=== PATIENT | male | born 1945 | race Caucasian/White ===

== ENCOUNTER 2024-01-04 13:06 | Inpatient (IN) ==
--- NOTE | 2024-01-04 14:06 | Emergency Department Note ---
Impression & Plan Fall, Ambulatory dysfunction, Elevated troponin, Cellulitis of right lower extremity ED Provider Note NAME: HINA FRANCIS AGE: 78 SEX: M : 1945 ARRIVES VIA: Walk-In INFORMANT: Patient, son ED PROVIDER(S): King Garcia MD CHIEF COMPLAINT: Fall, weakness, inability to care MEDICAL DECISION MAKING: Patient presents due to concern for 3 falls in the last 2 days. Patient also with associated weakness and possible inability to care. Son is requesting possible placement. IV was established and blood work was obtained. Patient has a normal white count hemoglobin 11. Patient's platelet count is unremarkable. Kidney function unremarkable. AST elevated at 53. Initial troponin of 29.2. Repeat of 30.8. Urinalysis does show blood but no signs of obvious infection. Patient did have CT of the head and cervical spine completed which were negative. Left hip and pelvis x-rays completed along with left shoulder x-ray. These are also negative. I did speak with the on-call hospitalist service Dr. Dahl and Traci Quintana PA-C and the patient was admitted to the medicine service. Discussion w/ other healthcare providers: Traci Quintana PA-C and Dr. Dahl Prior /Outside records reviewed: None Differential diagnosis: Fracture, dislocation, contusion, strain, sprain, ICH, hemothorax, intra- abdominal injury, anemia among other causes were considered. Diagnostics, as interpreted by me: ECG: Sinus, rate of 82, normal intervals, normal axis no ST elevations, ST depressions noted in the lateral leads. Cardiac monitoring: An order was placed for continuous cardiac monitoring. The monitor shows a rate of 77 with sinus rhythm. Patient was placed on pulse oximetry Medical decision rules: [place] head CT rule Imaging studies: I informally interpreted the patient's Left hip and pelvis x-rays do not show obvious fracture or dislocation with formal report to follow. HPI: Patient presents with son due to concern for 3 falls that occurred within the last 2 days. The patient reportedly never goes to his actual bedroom but tends to fall asleep in the couch or in a lift chair and reportedly had fallen off the couch yesterday as well as out of his chair yesterday. This morning he was apparently found on the floor by his brother. Patient's son brought him here as he lives closer to [place] and he was concerned about these falls. He does live in [place] of [place]. Patient does take Eliquis. He currently denies head or neck pain. Patient does not believe that he syncopized but just woke up on the floor. Patient does complain of some left heel pain does state that he has a chronic wound there. Patient was noted to have a DVT in his right lower extremity recently and that is why he does take the Eliquis. 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 PAST MEDICAL HISTORY: See Below PAST SURGICAL HISTORY: See Below SOCIAL HISTORY: See Below HOME MEDICATIONS: See Below ALLERGIES: See Below VITALS: See Below PHYSICAL EXAMINATION: GENERAL: NAD, non-toxic. EYE EXAM: Normal conjunctiva. PERRL, no anisocoria and EOM's grossly intact w/o pain. OROPHARYNX: Moist mucus membranes, grossly normal dentition. NECK: Trachea midline, no stridor. Supple, no nuchal rigidity, no adenopathy, non-tender. No signs of meningismus. FROM of the neck with good chin to chest and neck extension. LUNGS: Clear to auscultation. Normal chest wall mechanics. HEART: NSR, no MRG. ABDOMEN: Abdomen soft, non-tender, no masses, no rebound or guarding. BACK: No CVA TTP. SKIN: No rashes and no bruising. UPPER EXTREMITIES: Mild left shoulder pain. LOWER EXTREMITIES: Mild left hip pain and left heel pain. No obvious deformity. Left foot appears slightly smaller compared to the right. Right greater than left lower extremity swelling, venous stasis changes. Bilateral erythema noted. NEURO EXAM: A&O x3, cranial nerves II-XII grossly intact, normal speech, moves all 4 extremities. Past Med/Surg History Problem List (Updated 01/04/24 @ 19:34 by King Garcia MD) Cellulitis of right lower extremity (Acute) Elevated troponin (Acute) Ambulatory dysfunction (Acute) Fall (Acute) Medical History Chronic anemia hx of transfusion, hgb chronically at 11 Lung nodule CKD (chronic kidney disease) stage 3, GFR 30-59 ml/min Hx of cardiomyopathy CAD [facility]cor[facility]ary [facility] ([facility]ension) COPD (chronic obstructive pulmonary disease) Club foot left Right leg DVT dx in june, on eliquis for 3 months, resolved, and December 15 and nonocclusive DVT re diagnosed. He has been started on xarelto due to lack of insurance Peripheral arterial disease Surgical History Hx of cardiac cath 90% posterior, anterior 70% - nonamenable to stenting Hx of [id number] bypass 2021 angioplasty of previous aortic femoral bypass 2016 bypass of aorta 2018 femoral bypass Family History Son CHF (congestive heart failure) Other Family history non-contributory Social History Smoking Status: Former smoker Tobacco Type: Cigarettes Smoking End Date: 5 years ago; Hx Alcohol Use: Yes (hx of alcohol use, quit 30 years ago) Hx Substance Use: No Preferred Language: Egyptian Current Living Situation: Alone Feels Safe at Home: Yes Allergies Allergies Allergy/AdvReac Type Severity Reaction Status Date / Time No Known Allergies Allergy Unverified 01/04/24 16:27 Home Meds Home Medications Medication Instructions Recorded Confirmed aspirin 81 mg tablet,delayed 81 mg PO DAILY 01/04/24 01/04/24 release atorvastatin 40 mg tablet 40 mg PO DAILY 01/04/24 01/04/24 carvedilol 3.125 mg tablet 3.125 mg PO BID 01/04/24 01/04/24 ferrous sulfate 325 mg (65 mg 325 mg PO DAILY 01/04/24 01/04/24 iron) tablet (FeroSul) furosemide 20 mg tablet 20 mg PO DAILY 01/04/24 01/04/24 rivaroxaban 15 mg tablet (Xarelto) 15 mg PO BID 01/04/24 01/04/24 Results & Data (ED) Vital Signs Vital Signs - 24 hr 01/04/24 13:28 01/04/24 13:41 01/04/24 14:00 Temperature 36.6 C Temperature Source Temporal Artery Scan Pulse Rate 86 84 Pulse Rate from SpO2 Sensor 85 Respiratory Rate 20 31 H Respiratory Effort / Characteristics Non-Labored Spontaneous Respiratory Depth Normal Respiratory Pattern Regular Blood Pressure 148/61 H Blood Pressure Mean 90 Blood Pressure Position Sitting Pulse Oximetry 94 97 Oxygen Delivery Method Room Air Room Air Sepsis Recent Fever Within 48 Hours No Sepsis New/Unexplained Change in Mental Status No Sepsis Action Taken by Nursing No Action Required 01/04/24 14:16 01/04/24 14:16 01/04/24 14:21 Temperature Temperature Source Pulse Rate 85 Pulse Rate from SpO2 Sensor 84 Respiratory Rate 26 H Respiratory Effort / Characteristics Respiratory Depth Respiratory Pattern Blood Pressure 173/92 H Blood Pressure Mean 113 Blood Pressure Position Pulse Oximetry 97 99 Oxygen Delivery Method Room Air Sepsis Recent Fever Within 48 Hours Sepsis New/Unexplained Change in Mental Status Sepsis Action Taken by Nursing 01/04/24 14:31 01/04/24 14:31 01/04/24 14:33 Temperature Temperature Source Pulse Rate 85 Pulse Rate from SpO2 Sensor 85 Respiratory Rate 30 H Respiratory Effort / Characteristics Respiratory Depth Respiratory Pattern Blood Pressure 139/104 H 139/104 H Blood Pressure Mean 110 110 Blood Pressure Position Pulse Oximetry 97 Oxygen Delivery Method Sepsis Recent Fever Within 48 Hours Sepsis New/Unexplained Change in Mental Status Sepsis Action Taken by Nursing 01/04/24 14:45 01/04/24 14:46 01/04/24 14:46 Temperature Temperature Source Pulse Rate 85 Pulse Rate from SpO2 Sensor Respiratory Rate 29 H Respiratory Effort / Characteristics Respiratory Depth Respiratory Pattern Blood Pressure 173/77 H 173/77 H Blood Pressure Mean 111 111 Blood Pressure Position Pulse Oximetry Oxygen Delivery Method Sepsis Recent Fever Within 48 Hours Sepsis New/Unexplained Change in Mental Status Sepsis Action Taken by Nursing 01/04/24 15:00 01/04/24 15:01 01/04/24 15:01 Temperature Temperature Source Pulse Rate 88 Pulse Rate from SpO2 Sensor 90 Respiratory Rate 25 H Respiratory Effort / Characteristics Respiratory Depth Respiratory Pattern Blood Pressure 127/109 H Blood Pressure Mean 114 Blood Pressure Position Pulse Oximetry 96 Oxygen Delivery Method Room Air Sepsis Recent Fever Within 48 Hours Sepsis New/Unexplained Change in Mental Status Sepsis Action Taken by Nursing 01/04/24 15:15 01/04/24 15:15 01/04/24 15:15 Temperature Temperature Source Pulse Rate 85 Pulse Rate from SpO2 Sensor 85 Respiratory Rate Respiratory Effort / Characteristics Respiratory Depth Respiratory Pattern Blood Pressure 157/91 H 157/91 H Blood Pressure Mean 128 128 Blood Pressure Position Pulse Oximetry 98 Oxygen Delivery Method Sepsis Recent Fever Within 48 Hours Sepsis New/Unexplained Change in Mental Status Sepsis Action Taken by Nursing 01/04/24 15:24 01/04/24 15:33 01/04/24 15:33 Temperature Temperature Source Pulse Rate Pulse Rate from SpO2 Sensor 86 Respiratory Rate Respiratory Effort / Characteristics Respiratory Depth Respiratory Pattern Blood Pressure 132/78 132/78 Blood Pressure Mean 103 103 Blood Pressure Position Pulse Oximetry 97 Oxygen Delivery Method Sepsis Recent Fever Within 48 Hours Sepsis New/Unexplained Change in Mental Status Sepsis Action Taken by Nursing 01/04/24 15:36 01/04/24 15:42 01/04/24 15:45 Temperature Temperature Source Pulse Rate 84 85 Pulse Rate from SpO2 Sensor 84 85 Respiratory Rate 21 26 H Respiratory Effort / Characteristics Respiratory Depth Respiratory Pattern Blood Pressure 157/96 H Blood Pressure Mean 118 Blood Pressure Position Pulse Oximetry 96 97 Oxygen Delivery Method Sepsis Recent Fever Within 48 Hours Sepsis New/Unexplained Change in Mental Status Sepsis Action Taken by Nursing 01/04/24 15:45 01/04/24 15:51 01/04/24 16:00 Temperature Temperature Source Pulse Rate 90 Pulse Rate from SpO2 Sensor 90 Respiratory Rate 24 Respiratory Effort / Characteristics Respiratory Depth Respiratory Pattern Blood Pressure 157/96 H 139/82 Blood Pressure Mean 118 94 Blood Pressure Position Pulse Oximetry 97 Oxygen Delivery Method Sepsis Recent Fever Within 48 Hours Sepsis New/Unexplained Change in Mental Status Sepsis Action Taken by Nursing 01/04/24 16:21 01/04/24 16:23 01/04/24 16:23 Temperature Temperature Source Pulse Rate 83 Pulse Rate from SpO2 Sensor Respiratory Rate 19 Respiratory Effort / Characteristics Respiratory Depth Respiratory Pattern Blood Pressure 155/67 H 155/67 H Blood Pressure Mean 80 80 Blood Pressure Position Pulse Oximetry Oxygen Delivery Method Sepsis Recent Fever Within 48 Hours Sepsis New/Unexplained Change in Mental Status Sepsis Action Taken by Nursing 01/04/24 16:27 01/04/24 16:30 Temperature Temperature Source Pulse Rate 83 Pulse Rate from SpO2 Sensor Respiratory Rate 20 Respiratory Effort / Characteristics Respiratory Depth Respiratory Pattern Blood Pressure 140/70 Blood Pressure Mean 86 Blood Pressure Position Pulse Oximetry 97 Oxygen Delivery Method Sepsis Recent Fever Within 48 Hours Sepsis New/Unexplained Change in Mental Status Sepsis Action Taken by Alf Medications Current Medication List: was personally reviewed by me Laboratory Data Attestation: I reviewed the patient's lab results. 01/04/24 14:03 01/04/24 14:03 Lab Results 01/04/24 01/04/24 01/04/24 Range/Units 14:03 15:34 16:18 WBC 7.72 (4.8-10.8) K/ul RBC 4.42 L (4.70-6.10) M/uL Hgb 11.6 L (14.0-18.0) g/dl Hct 37.0 L (42.0-52.0) % MCV 83.7 (80.0-100.0) fL MCH 26.2 (25.0-34.0) pg MCHC 31.4 L (32.0-36.0) g/dL RDW Std Deviation 58.2 H (36.4-46.3) fL RDW Coeff of Karly 19.5 H (11.5-14.5) % Plt Count 250 (130-400) K/uL MPV 9.6 (9.4-12.4) fL Immature Gran % (Auto) 1.3 % Neut % (Auto) 50.4 % Lymph % (Auto) 17.9 % [place] % (Auto) 30.2 % Eos % (Auto) 0.1 % Baso % (Auto) 0.1 % Neut # (Auto) 3.89 (1.40-6.50) K/uL Lymph # (Auto) 1.38 (1.20-3.40) K/uL [place] # (Auto) 2.33 H (0.11-0.59) K/uL Eos # (Auto) 0.01 (0.00-0.50) K/uL Baso # (Auto) 0.01 (0.00-0.20) K/uL Immature Gran # (Auto) 0.10 (0.01-0.20) K/uL Sodium 142 (136-145) mmol/L Potassium 3.5 (3.5-5.1) mmol/L Chloride 102 (98-107) mmol/L Carbon Dioxide 32 (21-32) mmol/L Anion Gap 8 (3-11) BUN 19 (6-23) mg/dl Creatinine 1.37 (0.6-1.4) mg/dl Est Cr Clr Drug Dosing Not Reportable Est GFR ( Amer) 56.1 ml/min Est GFR (Non-Af Amer) 48.4 ml/min BUN/Creatinine Ratio 13.9 (10-20) Glucose 104 H (70-99(Fasting)) mg/dl Calcium 9.4 (8.6-10.3) mg/dl Total Bilirubin 1.1 H (0.2-1.0) mg/dl AST 53 H (13-39) U/L ALT 18 (7-52) U/L Alkaline Phosphatase 79 (34-104) U/L Troponin I High Sens 29.2 H 30.8 H (0-20) pg/ml Total Protein 7.3 (6.0-8.3) gm/dl Albumin 4.0 (3.4-5.0) gm/dl Globulin 3.3 (2.5-4.0) gm/dl Albumin/Globulin Ratio 1.2 (0.9-2) Urine Color Yellow Urine Appearance Clear (Clear) Urine pH 5.5 (4.5-7.5) Ur Specific [place] 1.017 (1.000-1.030) Urine Protein 1+ H (Negative) Urine Glucose (UA) Negative (Negative) Urine Ketones Negative (Negative) Urine Blood 1+ H (Negative) Urine Nitrite Negative (Negative) Urine Bilirubin Negative (Negative) Urine Urobilinogen Negative (Negative) Ur Leukocyte Esterase Negative (Negative) Urine WBC (Auto) 0-5 (0-5) /hpf Urine RBC (Auto) 6-10 H (0-2) /hpf U Hyaline Cast (Auto) 3-5 H (0-2) /lpf U Epithel Cells (Auto) 0-2 (0-2) /hpf Urine Bacteria (Auto) None Seen (None Seen) Administered Medications Discontinued Medications Acetaminophen (Acetaminophen 500 Mg Tab) 500 mg PO NOW STA Stop: 01/04/24 14:17 Last Admin: 01/04/24 14:42 Dose: 500 mg Documented By: UYEN Sodium Chloride (Nss) 500 mls @ 999 mls/hr IV .Q31M SIENNA Stop: 01/04/24 15:00 Last Infusion: 01/04/24 15:50 Dose: Infused Documented By: Admin: 01/04/24 14:42 Dose: 999 mls/hr Documented By: UYEN Imaging Data Radiologist's Impression: Cervical Spine CT 01/04/24 14:17 CT cervical spine wo con CLINICAL HISTORY: 78 years-old Male with Trauma. COMPARISON: Head CT of same day. TECHNIQUE: Multiple axial CT images of the cervical spine were obtained without contrast. A dose lowering technique was utilized adhering to the principles of ALARA. FINDINGS: Multilevel degenerative changes of the cervical spine, most severe at C1-C2 and moderate left C4-C5 and C5-C6. No acute cervical spine fracture or subluxation identified. The cervical soft tissues appear unremarkable. Pulmonary emphysema. Calcified plaque of the carotid bulbs. Minimal polypoid mucosal thickening of the maxillary sinuses. Dental caries and periapical cysts noted within the maxilla and mandible. The visualized lung apices appear clear. IMPRESSION: No acute cervical spine fracture or subluxation identified. ACT 112: Negative or not required by law. The above report was generated using voice recognition software. It may contain grammatical, syntax or spelling errors. Electronically signed by: Deshaun Torres M.D. 01/04/2024 4:[address] 01/04/24 14:[address] DOSE: 1489.67 mGy.cm HISTORY: Trauma TECHNIQUE: Multiaxial CT images of the head were performed without the use of intravenous contrast. Automated exposure control was utilized for this study. A dose lowering technique was utilized adhering to the principles of ALARA. Comparison: None. Findings: The paranasal sinuses and mastoid air cells are clear. The calvarium and skull base are intact. There is no mass, hematoma, midline shift, acute infarct. White matter hypodensity is nonspecific but suggestive of microvascular ischemic change. The ventricles and sulci demonstrate mild age-related involutional changes. Impression: No acute intracranial abnormality. ACT 112: Negative or not required by law. Electronically signed by: Yon Mcclellan M.D. 01/04/2024 4:27 PM Hip/Pelvis X-Ray 01/04/24 16:23 XR hip LT 2V w pelvis CLINICAL HISTORY: Hip trauma, fracture suspected, no prior imaging COMPARISON STUDY: None. FINDINGS: No acute fracture or dislocation within the pelvis or hips. The sacrum is intact. 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 Vascular calcifications are noted. Soft tissues are unremarkable. IMPRESSION: No acute fracture or dislocation within the pelvis or hips. ACT 112: Negative or not required by law. Electronically signed by: Yon Mcclellan M.D. 01/04/2024 4:56 PM Shoulder X-Ray 01/04/24 16:23 XR shoulder RT min 2V routine HISTORY: 78 years-old Male Shoulder trauma, no prior imaging the right shoulder pain without trauma COMPARISON: None TECHNIQUE: 3 views of the right shoulder FINDINGS: Mild glenohumeral and AC joint osteoarthritis. Demineralized appearance of the bones. No acute fracture, or dislocation identified. Imaged lung martinez appear clear with pulmonary emphysema. Atherosclerosis of the aorta. IMPRESSION: No acute fracture or dislocation identified. ACT 112: Negative or not required by law. The above report was generated using voice recognition software. It may contain grammatical, syntax or spelling errors. Electronically signed by: Deshaun Torres M.D. 01/04/2024 4:53 PM Discharge Plan Visit Data Chief Complaint: Trauma Stated Complaint: FALL X3, BLOOD CLOT IN R LEG, WOUND ON L FOOT ED Provider: King Garcia Discharge Problem: Fall, Ambulatory dysfunction, Elevated troponin, Cellulitis of right lower extremity Patient Disposition: Admitted As Inpatient Discharge Instructions Interventions: ED Discharge Assessment Last Done: 01/04/24 18:42 Discharge Problem: Fall Qualifiers: Encounter type: initial encounter Qualified Code(s): W19.XXXA - Unspecified fall, initial encounter
[2024-01-04 14:28] LABS: Hemoglobin 11.6 g/dl (14.0-18.0); Mean Corpuscular Hemoglobin 26.2 pg (25.0-34.0); Mean Corpuscular Hgb Conc 31.4 g/dL (32.0-36.0); Mean Corpuscular Volume 83.7 fL (80.0-100.0); Mean Platelet Volume 9.6 fL (9.4-12.4); Platelet Count 250 K/uL (130-400); RDW Coefficient of Variation 19.5 % (11.5-14.5); RDW Standard Deviation 58.2 fL (36.4-46.3); Red Blood Count 4.42 M/uL (4.70-6.10); White Blood Count 7.72 K/ul (4.8-10.8)
[2024-01-04] MEDS: ACETAMINOPHEN 500 MG TAB PO STA (14:42)
[2024-01-04] MEDS: SODIUM CHLORIDE 0.9% 500 ML IV SCH (14:42)
[2024-01-04 14:50] LABS: Alanine Aminotransferase 18 U/L (7-52); Albumin Globulin Ratio 1.2 (0.9-2); Alkaline Phosphatase 79 U/L (34-104); Anion Gap 8 (3-11); Aspartate Aminotransferase 53 U/L (13-39); BUN Creatinine Ratio 13.9 (10-20); Bilirubin,Total 1.1 mg/dl (0.2-1.0); Blood Urea Nitrogen 19 mg/dl (6-23); Calcium 9.4 mg/dl (8.6-10.3); Carbon Dioxide 32 mmol/L (21-32); Chloride 102 mmol/L (98-107); Est GFR (African American) 56.1 ml/min; Est GFR (Non-African American) 48.4 ml/min; Globulin 3.3 gm/dl (2.5-4.0); Glucose 104 mg/dl (70-99(Fasting)); Potassium 3.5 mmol/L (3.5-5.1); Sodium 142 mmol/L (136-145); Total Protein 7.3 gm/dl (6.0-8.3)
[2024-01-04 14:55] LABS: Troponin I High Sensitivity 29.2 pg/ml (0-20)
[2024-01-04 15:00] LABS: Basophils # (auto) 0.01 K/uL (0.00-0.20); Basophils % (auto) 0.1 %; Eosinophils # (auto) 0.01 K/uL (0.00-0.50); Eosinophils % (auto) 0.1 %; Immature Granulocytes % (auto) 1.3 %; Lymphocytes # (auto) 1.38 K/uL (1.20-3.40); Lymphocytes % (auto) 17.9 %; Monocytes # (auto) 2.33 K/uL (0.11-0.59); Monocytes % (auto) 30.2 %; Neutrophils # (auto) 3.89 K/uL (1.40-6.50); Neutrophils % (auto) 50.4 %
[2024-01-04 16:15] LABS: Appearance Urine Clear (Clear); Bacteria Urine Automated None Seen (None Seen); Bilirubin Urine Negative (Negative); Blood Urine 1+ (Negative); Color Urine Yellow; Epithelial Cell Urine Auto 0-2 /hpf (0-2); Glucose Urine UA Negative (Negative); Ketones Urine Negative (Negative); Leukocyte Esterase Urine Negative (Negative); Nitrite Urine Negative (Negative); Protein Urine 1+ (Negative); Specific Gravity Urine 1.017 (1.000-1.030); Urobilinogen Urine Negative (Negative); WBC Urine Automated 0-5 /hpf (0-5); pH Urine 5.5 (4.5-7.5)
--- NOTE | 2024-01-04 16:29 | CT Scan Report ---
HEAD CT NONCONTRAST CT DOSE: 1489.67 mGy.cm HISTORY: Trauma TECHNIQUE: Multiaxial CT images of the head were performed without the use of intravenous contrast. A utomated exposure control was utilized for this study. A dose lowering technique was utilized adheri ng to the principles of ALARA. Comparison: None. Findings: The paranasal sinuses and mastoid air cells are clear. The calvarium and skull base are int act. There is no mass, hematoma, midline shift, acute infarct. White matter hypodensity is nonspecifi c but suggestive of microvascular ischemic change. The ventricles and sulci demonstrate mild age-rela abe involutional changes. Impression: No acute intracranial abnormality. ACT 112: Negative or not required by law. Electronically signed by: Yon Mcclellan M.D. 01/04/2024 4:27 PM
--- NOTE | 2024-01-04 16:40 | CT Scan Report ---
CT cervical spine wo con CLINICAL HISTORY: 78 years-old Male with Trauma. COMPARISON: Head CT of same day. TECHNIQUE: Multiple axial CT images of the cervical spine were obtained without contrast. A dose low ering technique was utilized adhering to the principles of ALARA. FINDINGS: Multilevel degenerative changes of the cervical spine, most severe at C1-C2 and moderate le ft C4-C5 and C5-C6. No acute cervical spine fracture or subluxation identified. The cervical soft tissues appear unremarkable. Pulmonary emphysema. Calcified plaque of the carotid b ulbs. Minimal polypoid mucosal thickening of the maxillary sinuses. Dental caries and periapical cyst s noted within the maxilla and mandible. The visualized lung apices appear clear. IMPRESSION: No acute cervical spine fracture or subluxation identified. ACT 112: Negative or not required by law. The above report was generated using voice recognition software. It may contain grammatical, syntax o r spelling errors. Electronically signed by: Deshaun Torres M.D. 01/04/2024 4:37 PM
--- NOTE | 2024-01-04 16:55 | XRay Report ---
XR shoulder RT min 2V routine HISTORY: 78 years-old Male Shoulder trauma, no prior imaging the right shoulder pain without trauma COMPARISON: None TECHNIQUE: 3 views of the right shoulder FINDINGS: Mild glenohumeral and AC joint osteoarthritis. Demineralized appearance of the bones. No acute fractu re, or dislocation identified. Imaged lung martinez appear clear with pulmonary emphysema. Atherosclero sis of the aorta. IMPRESSION: No acute fracture or dislocation identified. ACT 112: Negative or not required by law. The above report was generated using voice recognition software. It may contain grammatical, syntax o r spelling errors. Electronically signed by: Deshaun Torres M.D. 01/04/2024 4:53 PM
--- NOTE | 2024-01-04 16:57 | XRay Report ---
XR hip LT 2V w pelvis CLINICAL HISTORY: Hip trauma, fracture suspected, no prior imaging COMPARISON STUDY: None. FINDINGS: No acute fracture or dislocation within the pelvis or hips. The sacrum is intact. 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 Vascular calcifications are noted. Soft tissues a re unremarkable. IMPRESSION: No acute fracture or dislocation within the pelvis or hips. ACT 112: Negative or not required by law. Electronically signed by: Yon Mcclellan M.D. 01/04/2024 4:56 PM
--- NOTE | 2024-01-04 17:25 | History & Physical Report ---
Date of Service January 04, 2024 Assessment & Plan (1) Fall: (2) Ambulatory dysfunction: (3) Elevated troponin: (4) Cellulitis of right lower extremity: (5) Right leg DVT: (6) Peripheral arterial disease: (7) CAD (coronary artery disease): (8) Hx of cardiomyopathy: (9) CKD (chronic kidney disease) stage 3, GFR 30-59 ml/min: (10) COPD (chronic obstructive pulmonary disease): Plan This is an 78-year-old male who has a significant past medical history of CAD, PAD with history of aortic bypass, hx of femoral bypass and hx of angioplasty to femoral bypass, CKD-3, chronic anemia, COPD, chronic L club foot pain this is a patient with bilateral nephrostomy tube which are, DVT who presents to ED 2/2 falls. Acute RLE cellulitis in setting of chronic venous stasis changes and known PAD admit to med tele IV ancef for now he does not meet SIRS/Sepsis criteria pt with L heel breakdown, no tiara infection there, heel precautions and wound nurse order Obtain RLE Venous doppler - we know he has a known DVT but will obtain imaging to get a better understanding of clot given pt not local Fall ( 3 falls in 2 days) Ambulatory dysfunction PT/OT Son agreeable to short term rehab until family determines joint terminal attack controller plan PAD with hx of aortic/femoral bypass with angioplasty of femoral bypass on statin, asa and now xarelto follows with vascular in [place] Hx of CAD Hx of cardiomyopathy (per son) Elevated troponin pt with some subtle lateral/inferior ecg changes, none to compare follows [facility] cycle trops, obtain echo, ecg in a.m; pt is w/o CP and 2 hr trop is flat doubt ACS Subacute RLE DVT dx Dec 16, on xarelto 15mg bid then 20mg daily previously on eliquis, now on xarelto due to lack of insurance initially dx june 2023 with dvt, eliquis for 3 months, off eliquis for 3 months and re diagnosed with RLE DVT 12/16 Chronic Anemia hgb around 11 at baseline per son obtain anemia panel in a.m. son reports previous w/u unrevealing but he is on iron supplement CKD- 3baseline cr 1.4, chronic, stable, avoid nephrotoxic agents COPD/Former tobacco abuse:no acute exac DVT ppx: On xarelto for active DVT DNR/DNI PCP: CATHERINE Nowak Dispo: admit to med tele, family and pt agreeable to short term rehab until family (2 brothers) determine usp plan for patient Pt was seen and examined in collaboration with Dr. Dahl, please see addendum A total of 76 minutes was spent coordinating, documenting, and providing care for this patient excluding time spent in the performance of separately billed services. This included personally viewing all current laboratories and imaging studies, medication reconciliation, outpatient chart review, and discussion with specialists. History of Present Illness Chief Complaint: Fall x 3 in 2 days, weakness Primary Care Provider: Akilah Short This is an 78-year-old male who has a significant past medical history of CAD, PAD with history of aortic bypass, hx of femoral bypass and hx of angioplasty to femoral bypass, CKD-3, chronic anemia, COPD, chronic L club foot pain this is a patient with bilateral nephrostomy tube which are, DVT who presents to ED 2/2 falls. Son and daughter in law at bedside. They help provide history. Patient resides in a [place], [place]. He was brought here today by his son who lives in the area for further evaluation and concern due to his recent falls. Pt has another son that lives by him and checks on him regularly. He also has someone come to house to help with his meds that helps with compliance. Also of note pt dx with RLE DVT in June and tx with Eliquis x 3 months. He had been off for 3 months and on re eval he was found to have another RLE DVT and placed on xarelto 12/16. Son feels that pt RLE is more red than usual. Pt denies any f/c/s, chest pain, sob at rest, n/v/d, abd pain. He is complaining of L heel pain. Son reports drainage of L heel and that he recently completed a 10 day course of keflex approx 1 week ago due to concern for cellulitis on his left foot. He has had 3 falls the last 2 days. He mostly sleeps in a recliner. His one fall he rolled off the couch while sleeping and the other he fell when he was trying to stand up. He generally feels weak. He walks with a walker. He is unsure if he struck his head, but he presumes that he did. He does not have any traumatic injury other than bruising. He denies BENAVIDEZ of vision changes. He is complaining of L foot pain. He denies any recent illness. He denies f/c/s, chest pain, sob,n/v/d, abd pain. In ED pt remained hemodynamically stable. Head CT, C spine CT, shoulder XR and hip/pelvis xr negative for acute trauma. Hx of smoking. He smoked for 50 years. He quit 5 year ago. Allergies Allergy/AdvReac Type Severity Reaction Status Date / Time No Known Allergies Allergy Unverified 01/04/24 16:27 Home Medications Medication Instructions Recorded Confirmed Type aspirin 81 mg tablet,delayed 81 mg PO DAILY 01/04/24 01/04/24 History release atorvastatin 40 mg tablet 40 mg PO DAILY 01/04/24 01/04/24 History carvedilol 3.125 mg tablet 3.125 mg PO BID 01/04/24 01/04/24 History ferrous sulfate 325 mg (65 mg 325 mg PO DAILY 01/04/24 01/04/24 History iron) tablet (FeroSul) furosemide 20 mg tablet 20 mg PO DAILY 01/04/24 01/04/24 History rivaroxaban 15 mg tablet (Xarelto) 15 mg PO BID 01/04/24 01/04/24 History Past Med/Surg History Problem List (Updated 01/04/24 @ 19:34 by King Garcia MD) Cellulitis of right lower extremity (Acute) Elevated troponin (Acute) Ambulatory dysfunction (Acute) Fall (Acute) Medical History Chronic anemia hx of transfusion, hgb chronically at 11 Lung nodule CKD (chronic kidney disease) stage 3, GFR 30-59 ml/min Hx of cardiomyopathy CAD (coronary artery disease) Dr. Leyva [facility] [place] Gil[facility]to HTN (hypertension) COPD (chronic obstructive pulmonary disease) Club foot left Right leg DVT dx in june, on eliquis for 3 months, resolved, and December 15 and nonocclusive DVT re diagnosed. He has been started on xarelto due to lack of insurance Peripheral arterial disease Surgical History Hx of cardiac cath 90% posterior, anterior 70% - nonamenable to stenting Hx of [id number] bypass 2021 angioplasty of previous aortic femoral bypass 2016 bypass of aorta 2018 femoral bypass Family History Son CHF (congestive heart failure) Other Family history non-contributory Social History Smoking Status: Former smoker Tobacco Type: Cigarettes Smoking End Date: 5 years ago; Hx Alcohol Use: Yes (hx of alcohol use, quit 30 years ago) Hx Substance Use: No Preferred Language: Albanian Current Living Situation: Alone Feels Safe at Home: Yes Review of Systems Review of Systems: All systems reviewed & are unremarkable except as noted in HPI & below Physical Exam Physical Exam: please refer to Dr. Dahl addendum for physical exam findings. Results & Data Results & Data Vital Signs (Past 12 Hours) Vital Signs Temp Pulse Resp BP Pulse Ox O2 Del Method 01/04/24 16:30 140/70 01/04/24 16:27 83 20 97 01/04/24 16:23 155/67 H 01/04/24 16:23 155/67 H 01/04/24 16:21 83 19 01/04/24 16:00 139/82 01/04/24 15:51 90 24 97 01/04/24 15:45 157/96 H 01/04/24 15:45 157/96 H 01/04/24 15:42 85 26 H 97 01/04/24 15:36 84 21 96 01/04/24 15:33 132/78 01/04/24 15:33 132/78 01/04/24 15:24 97 01/04/24 15:15 85 98 01/04/24 15:15 157/91 H 01/04/24 15:15 157/91 H 01/04/24 15:01 127/109 H 01/04/24 15:01 Room Air 01/04/24 15:00 88 25 H 96 01/04/24 14:46 173/77 H 01/04/24 14:46 173/77 H 01/04/24 14:45 85 29 H 01/04/24 14:33 85 30 H 97 01/04/24 14:31 139/104 H 01/04/24 14:31 139/104 H 01/04/24 14:21 85 26 H 99 01/04/24 14:16 97 Room Air 01/04/24 14:16 173/92 H 01/04/24 14:00 84 31 H 97 01/04/24 13:41 Room Air 01/04/24 13:28 36.6 C 86 20 148/61 H 94 Room Air Laboratory Results I have independently reviewed and interpreted patient's admitting labs including CBC, CMP, pt/inr, trop, UA Diagnostic Findings Cervical Spine CT 01/04/24 14:17 CT cervical spine wo con CLINICAL HISTORY: 78 years-old Male with Trauma. COMPARISON: Head CT of same day. TECHNIQUE: Multiple axial CT images of the cervical spine were obtained without contrast. A dose lowering technique was utilized adhering to the principles of ALARA. FINDINGS: Multilevel degenerative changes of the cervical spine, most severe at C1-C2 and moderate left C4-C5 and C5-C6. No acute cervical spine fracture or subluxation identified. The cervical soft tissues appear unremarkable. Pulmonary emphysema. Calcified plaque of the carotid bulbs. Minimal polypoid mucosal thickening of the maxillary sinuses. Dental caries and periapical cysts noted within the maxilla and mandible. The visualized lung apices appear clear. IMPRESSION: No acute cervical spine fracture or subluxation identified. ACT 112: Negative or not required by law. The above report was generated using voice recognition software. It may contain grammatical, syntax or spelling errors. Electronically signed by: Deshaun Torres M.D. 01/04/2024 4:[address] 01/04/24 14:[address] DOSE: 1489.67 mGy.cm HISTORY: Trauma TECHNIQUE: Multiaxial CT images of the head were performed without the use of intravenous contrast. Automated exposure control was utilized for this study. A dose lowering technique was utilized adhering to the principles of ALARA. Comparison: None. Findings: The paranasal sinuses and mastoid air cells are clear. The calvarium and skull base are intact. There is no mass, hematoma, midline shift, acute infarct. White matter hypodensity is nonspecific but suggestive of microvascular ischemic change. The ventricles and sulci demonstrate mild age-related involutional changes. Impression: No acute intracranial abnormality. ACT 112: Negative or not required by law. Electronically signed by: Yon Mcclellan M.D. 01/04/2024 4:27 PM Hip/Pelvis X-Ray 01/04/24 16:23 XR hip LT 2V w pelvis CLINICAL HISTORY: Hip trauma, fracture suspected, no prior imaging COMPARISON STUDY: None. FINDINGS: No acute fracture or dislocation within the pelvis or hips. The sacrum is intact. 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 Vascular calcifications are noted. Soft tissues are unremarkable. IMPRESSION: No acute fracture or dislocation within the pelvis or hips. ACT 112: Negative or not required by law. Electronically signed by: Yon Mcclellan M.D. 01/04/2024 4:56 PM Shoulder X-Ray 01/04/24 16:23 XR shoulder RT min 2V routine HISTORY: 78 years-old Male Shoulder trauma, no prior imaging the right shoulder pain without trauma COMPARISON: None TECHNIQUE: 3 views of the right shoulder FINDINGS: Mild glenohumeral and AC joint osteoarthritis. Demineralized appearance of the bones. No acute fracture, or dislocation identified. Imaged lung martinez appear clear with pulmonary emphysema. Atherosclerosis of the aorta. IMPRESSION: No acute fracture or dislocation identified. ACT 112: Negative or not required by law. The above report was generated using voice recognition software. It may contain grammatical, syntax or spelling errors. Electronically signed by: Deshaun Torres M.D. 01/04/2024 4:53 PM Medications Administered Medication List Discontinued Medications Acetaminophen (Acetaminophen 500 Mg Tab) 500 mg PO NOW STA Stop: 01/04/24 14:17 Last Admin: 01/04/24 14:42 Dose: 500 mg Documented By: UYEN Sodium Chloride (Nss) 500 mls @ 999 mls/hr IV .Q31M SIENNA Stop: 01/04/24 15:00 Last Infusion: 01/04/24 15:50 Dose: Infused Documented By: Admin: 01/04/24 14:42 Dose: 999 mls/hr Documented By: UYEN ECG Additional Comments: I have independently reviewed and interpreted patient's admitting EKG which revealed: 82 SR PAC, inferior/lateral St wave depression noted, no comparsion COVID-19 Results Results COVID-19 Adm Lab Results: RBC 4.42 M/uL (4.70-6.10) L 01/04/24 WBC 7.72 K/ul (4.8-10.8) 01/04/24 Hgb 11.6 g/dl (14.0-18.0) L 01/04/24 Hct 37.0 % (42.0-52.0) L 01/04/24 Plt Count 250 K/uL (130-400) 01/04/24 Neutrophils (%) (Auto) 50.4 % 01/04/24 Lymphocytes (%) (Auto) 17.9 % 01/04/24 Monocytes # (Auto) 2.33 K/uL (0.11-0.59) H 01/04/24 Eosinophils # (Auto) 0.01 K/uL (0.00-0.50) 01/04/24 Immature Granulocyte % (Auto) 1.3 % 01/04/24 Neutrophils # (Auto) 3.89 K/uL (1.40-6.50) 01/04/24 Lymphocytes # (Auto) 1.38 K/uL (1.20-3.40) 01/04/24 Monocytes # (Auto) 2.33 K/uL (0.11-0.59) H 01/04/24 Eosinophils # (Auto) 0.01 K/uL (0.00-0.50) 01/04/24 Basophils # (Auto) 0.01 K/uL (0.00-0.20) 01/04/24 Immature Granulocyte # (Auto) 0.10 K/uL (0.01-0.20) 4 Na 142 mmol/L (136-145) 01/04/24 K 3.5 mmol/L (3.5-5.1) 01/04/24 Cl 102 mmol/L (98-107) 01/04/24 CO2 32 mmol/L (21-32) 01/04/24 Anion Gap 8 (3-11) 01/04/24 BUN 19 mg/dl (6-23) 01/04/24 Creatinine 1.37 mg/dl (0.6-1.4) 01/04/24 BUN/Creatinine Ratio 13.9 (10-20) 01/04/24 Glucose Level 104 mg/dl (70-99(Fasting)) H 01/04/24 Ca 9.4 mg/dl (8.6-10.3) 01/04/24 Total Bilirubin 1.1 mg/dl (0.2-1.0) H 01/04/24 AST/SGOT 53 U/L (13-39) H 01/04/24 ALT/SGPT 18 U/L (7-52) 01/04/24 Alkaline Phosphatase 79 U/L (34-104) 01/04/24 Total Protein 7.3 gm/dl (6.0-8.3) 01/04/24 Albumin 4.0 gm/dl (3.4-5.0) 01/04/24 Globulin 3.3 gm/dl (2.5-4.0) 01/04/24 Albumin/Globulin Ratio 1.2 (0.9-2) 01/04/24 INR Pending 01/04/24 Code Status & VTE Plan Code Status DNR/DNI VTE Prophylaxis Plan VTE Prophylaxis will be ordered: No Reason for no VTE drug order: Treatment not indicated Supervising Physician Co-Signing Physician Notes 78 yo M w/ PMH of CHF, MS, RLE DVT, Lt heel cellulitis (recently Rxed w/ Keflex which they completed about 10 days ago), aortic bypass, femoral bypass x rt and angioplasty of femoral bypass presented to the ED due to multiple falls since last 2 days. He states he rolled off of recliner and cough while sleeping and one time he was trying to get off of chair by himself, he became weak and landed on his buttocks. Per his son, he needs assistance w/ getting off of chair. Son reports pt's Rt leg has been getting red lately. Pt was on eliquis previously for DVT x RLE and was off of any blood thinner for 3 months and was again put back on xarelto on Dec 16. He states his insurance doesn't support eliquis and xarelto and pt can't be on coumadin due to pt's transportation issues/need for frequently pt inr check. Labs reviewed, fairly wnl. trop x 2 around 30. Fall: recurrent falls, likely 2/2 acute infection iso ambulatory dysfunction/left club foot. CT Head/C-spine CT/Left Hip XR/Rt Shoulder XR w/ no acute findings. PT/OT HO RLE DVT: RLE swollen, red. Will get RLE doppler venous. c/w xarelto. WOCN consult. RLE cellulitis: RLE erythema increasing per son. Warm to touch on exam. Will initiate cefazolin. Elevated trop, around 30, trend. get echo. Pt w/ no chest pain, EKG w/ no acute ST or T changes. On Exam : GENERAL: Alert and oriented x3. NAD, on RA. Appears ill/frail/weak/old. HEENT: No pallor, no icterus. Pupils equal, round and reactive to light. Oral mucosa moist. NECK: No JVD, no neck masses. HEART: S1 and S2 heard. Regular rate and rhythm. No murmur, no gallop. RESPIRATORY SYSTEM: Normal AP diameter. No accessory muscle use. No wheezing, no crackles. ABDOMEN: Soft, bowel sounds present, nontender, no distention. CENTRAL NERVOUS SYSTEM: No facial droop. Speech is clear. Obeys simple commands. Moves extremities. EXTREMITIES: RLE edema > LLE. Rt leg and foot warmth/edema noted. Left club foot noted. Rt shoulder bruise, Left elbow bruise and left hand bruise noted. No bruise/swelling in head/neck area. I have seen and examined the patient and have discussed the case with the provider above. I agree with the assessment and plan as stated.
--- NOTE | 2024-01-04 18:57 | Electrocardiogram Report ---
Test Reason : Blood Pressure : */* mmHG Vent. Rate : 82 BPM Atrial Rate : 82 BPM P-R Int : 140 ms QRS Dur : 72 ms QT Int : 364 ms P-R-T Axes : 87 74 248 degrees QTcB Int : 425 ms Sinus rhythm with Premature ventricular complexes Septal infarct , age undetermined Abnormal ECG No previous ECGs available Confirmed by Rayo Blake ([id number]) on 01/04/2024 6:57:07 PM Referred By: REFERRED SELF Confirmed By: Rayo Blake
[2024-01-04] MEDS ORDERED: FAMOTIDINE 20 MG TAB PO PRN (19:32)
[2024-01-04] MEDS ORDERED: POLYETHYLENE (MIRALAX) 17 GM PACK PO PRN (19:32)
[2024-01-04] MEDS ORDERED: ALBUT/IPRATROP 3MG/0.5MG NEB 3 ML VIAL NEB PRN (19:32)
[2024-01-04] MEDS ORDERED: DOCUSATE SODIUM 100 MG CAP PO PRN (19:32)
[2024-01-04] MEDS ORDERED: ONDANSETRON INJ 2 MG/ML 2 ML VIAL IV PRN (19:32)
[2024-01-04] MEDS: ceFAZolin 2000MG 2,000 MG/15 ML SYR IV SCH (22:12)
[2024-01-04] MEDS: carvediloL 3.125 MG TAB PO SCH (22:12)
[2024-01-04] MEDS: RIVAROXABAN 15 MG TAB PO SCH (22:12)
[2024-01-04] MEDS: ACETAMINOPHEN 325 MG TAB PO PRN (22:14)
[2024-01-04] MEDS: MELATONIN 3 MG TAB PO PRN (22:14)
[2024-01-04 23:31] LABS: INR 1.1 (0.9-1.1)
--- NOTE | 2024-01-05 03:44 | Ultrasound Report ---
Exam(s): US VENOUS RIGHT LOWER EXTREMITY EXAM: US Duplex Right Lower Extremity Veins CLINICAL HISTORY: Concern for deep vein thrombosis. TECHNIQUE: Real-time duplex ultrasound scan of the right lower extremity veins integrating B-mode two-dimensional vascular structure, Doppler spectral analysis, color flow Doppler imaging and compression. COMPARISON: No relevant prior studies available. FINDINGS: Deep veins: Unremarkable. No Deep vein thrombosis in the visualized common femoral, femoral, proximal deep femoral or popliteal veins. The veins demonstrate normal color flow, are normally compressible, with normal phasic flow and/or augmentation response. Superficial veins: Poorly visualized great saphenous vein. Soft tissues: Nonspecific subcutaneous edema. No popliteal cyst. IMPRESSION: 1. Nonspecific subcutaneous edema. 2. No deep vein thrombosis of the right lower extremity. 3. The greater saphenous vein is not well visualized. Electronically signed by: Sara Yousif MD 01/05/24 03:44 AM
[2024-01-05 07:07] LABS: Hematocrit (blood only) 30.6 % (42.0-52.0); Hemoglobin 9.6 g/dl (14.0-18.0); Mean Corpuscular Hemoglobin 26.4 pg (25.0-34.0); Mean Corpuscular Hgb Conc 31.4 g/dL (32.0-36.0); Mean Corpuscular Volume 84.3 fL (80.0-100.0); Mean Platelet Volume 9.9 fL (9.4-12.4); Platelet Count 217 K/uL (130-400); RDW Coefficient of Variation 19.3 % (11.5-14.5); RDW Standard Deviation 58.8 fL (36.4-46.3); Red Blood Count 3.63 M/uL (4.70-6.10); White Blood Count 5.27 K/ul (4.8-10.8)
[2024-01-05 07:46] LABS: Albumin Globulin Ratio 1.3 (0.9-2); Albumin Level 3.4 gm/dl (3.4-5.0); BUN Creatinine Ratio 14.4 (10-20); Bilirubin,Total 0.6 mg/dl (0.2-1.0); Calcium 8.3 mg/dl (8.6-10.3); Creatinine Clr Calc Pharmacy 33.1 ml/min; Est GFR (African American) 51.9 ml/min; Est GFR (Non-African American) 44.8 ml/min; Globulin 2.7 gm/dl (2.5-4.0); Magnesium 1.8 mg/dl (1.7-2.4); Potassium 3.3 mmol/L (3.5-5.1); Thyroid Stimulating Hormone 7.208 uIu/ml (0.300-4.500); Total Protein 6.1 gm/dl (6.0-8.3); Troponin I High Sensitivity 29.1 pg/ml (0-20)
[2024-01-05 08:01] LABS: Basophils # (auto) 0.01 K/uL (0.00-0.20); Basophils % (auto) 0.2 %; Eosinophils # (auto) 0.02 K/uL (0.00-0.50); Eosinophils % (auto) 0.4 %; Immature Granulocytes # (auto) 0.07 K/uL (0.01-0.20); Immature Granulocytes % (auto) 1.3 %; Lymphocytes # (auto) 1.28 K/uL (1.20-3.40); Lymphocytes % (auto) 24.3 %; Monocytes # (auto) 1.72 K/uL (0.11-0.59); Monocytes % (auto) 32.6 %; Neutrophils # (auto) 2.17 K/uL (1.40-6.50); Neutrophils % (auto) 41.2 %
[2024-01-05] MEDS: FUROSEMIDE 20 MG TAB PO SCH (08:28)
[2024-01-05] MEDS: ADVANCED PROBIOTIC 625 MG CAPSULE PO SCH (08:29)
[2024-01-05] MEDS: FERROUS SULFATE PO SCH (08:29)
[2024-01-05] MEDS: ATORVASTATIN 40 MG TAB PO SCH (08:29)
[2024-01-05] MEDS: ASPIRIN 81 MG ECTAB PO SCH (08:29)
[2024-01-05] MEDS: POTASSIUM CHLORIDE / WTR 10 MEQ/100 ML PLCT IV SCH (10:35)
[2024-01-05] MEDS: CHOLECALCIFEROL 125 MCG (5,000 UNITS) TAB PO SCH (10:40)
[2024-01-05 10:56] LABS: Ferritin 192.4 ng/ml (8-388); T4 Free Thyroxine 1.05 ng/dl (0.61-1.60)
--- NOTE | 2024-01-05 12:59 | Hospitalist Progress Note ---
<Statement entered by Landon Bowling, - 01/05/24 14:00> I have seen and examined the patient and have discussed the case with the provider above. I have reviewed the advanced practitioner's documentation, and I agree with, and take responsibility for that plan of care. 14 minutes spent on care coordination and evaluation of patient. Patient seen up and ambulating in the halls. Denies any pain in the leg. No shortness of breath. Reviewed ultrasound of lower extremity, no definitive DVT some chronic edema. Anticipate patient will be able to be converted to oral Keflex soon Further plan of care as outlined below Date of Service January 05, 2024 Assessment & Plan (1) Ambulatory dysfunction: (2) Cellulitis of right lower extremity: Plan Zak Mays is an 78y/o M with PMHx significant for CAD, PAD [history of yzlzd-afycc-doxbavj bypass & history of angioplasty of previous xvwgq-mkqsc-imbpmeh bypass in 2021 - both procedures completed in [place]], CKD stage III, COPD, chronic anemia [appears baseline Hgb ~11], lung nodule, history of cardiomyopathy, HTN, chronic left clubfoot pain and RLE DVT who presented to the ED on 01/04/24 for evaluation secondary to recent falls. Patient also noted to have RLE cellulitis and elevated troponin level at time of admission. Ambulatory Dysfunction, Recent Falls: PT evaluation pending. CM met with patient and his son, Patrick, this afternoon. Initial OT evaluation recommending acute inpatient rehabilitation placement at time of discharge. Acute RLE Cellulitis: In setting of chronic venous stasis changes, known PAD. Vitals stable. Continue IV Ancef for now. CrCl dropped to ~ 33ml/min today. Pharmacy recommended decreasing Ancef to 2g IV Q12H instead of Q8H - ordered. Elevated Troponin CAD, History of Cardiomyopathy: EKG done in ED with subtle lateral/inferior EKG changes. Patient without chest pain. Initial troponin 29.2, repeat troponins appear to have flattened out. Low concern for ACS. Patient follows with [facility] in [place] [Dr. Efrem Gastelum] per his son. Routine echo revealed small sized anterolateral wall motion abnormality with hypokinesis of the segments, LVEF=45-50% and grade I diastolic dysfunction. Per echo report/summary --> The septal wall motion abnormality correlates with the findings of age-indeterminate septal infarction noted on EKG done in the ED. Subacute RLE DVT: Patient was diagnosed with RLE in 06/2023 and treated with Eliquis x 3 months. Non-occlusive RLE DVT rediagnosed on 12/17/23. Was placed on Xarelto at that time 2/2 lack of insurance coverage. RLE venous doppler US yesterday showed nonspecific subcutaneous edema, however no DVT noted. Continue Xarelto. Xarelto dosing per chart review --> 15mg BID for 21 days through 01/07/24, then 20mg daily starting on 01/08/24. 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 Recently completed 10-day course of Keflex from his PCP 2/2 concern of infection. Wound care involved. Peripheral Arterial Disease (PAD) H/O Elrov-Lvwhr-Vraddlu Bypass & Angioplasty: Continue statin, ASA and Xarelto. Son reports he follows with vascular surgery in [place]. Chronic Anemia: Hgb ~11 at baseline, Hgb 9.6 today. Anemia panel notes iron deficiency. 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 CKD Stage III: Appears baseline Cr ~1.4, Cr stable at 1.46 today. Avoid nephrotoxic meds when able. Continue to monitor renal fx. COPD: No acute exacerbation sx's, no home medications for COPD management. 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 Code Status: DNR/DNI - As outlined by previous provider. PCP: Akilah Short MD [[facility] in [place]] Disposition: Previously under observation status. Transitioned patient to full admission status given anticipation of >48hr length of stay. CM involved with patient's case. Patient seen in collaboration with Dr. Bowling. Please see addendum. I spent a total of 65 minutes coordinating, documenting, and providing care for this patient excluding time spent in the performance of separately billed services. This included personally reviewing all current laboratories and imaging studies, medical reconciliation, outpatient chart review and discussion with specialists. This chart was completed in part utilizing Speech Voice Recognition Software. Grammatical errors, random word insertions, pronoun errors, and incomplete sentences are an occasional consequence of this system due to software limitations, ambient noise, and hardware issues. Any formal questions or concerns about the content, text, or information contained within the body of this dictation should be directly addressed to the provider for clarification. Admission and Anticipated Discharge Date Admission Date: January 04, 2024 Subjective Patient seen and examined at bedside in room N283-1. His son, Patrick, was present in the room for further discussion. Patient had fallen off of the couch and out of his chair the other day. Patrick reports that he has had 3 or so falls over the past couple of days. Patient lives in [place], [place]. Patrick however lives in the area and wanted to bring his father here for evaluation. Patient uses a walker/rollator at baseline. He lives at home alone. Has private caregivers that stop by daily to assist with ADLs. He was previously fully independent a few months ago and was active with [facility] - he is not currently associated with them. Patrick notes that the family is open to considering placement options for him if he cannot return home safely with previous private caregiver support. Review of Systems Review of Systems: At least ten systems reviewed and negative, except as noted in the HPI. Physical Exam Physical Exam: General: Very frail, vitals as above, NAD, sitting up in chair at bedside eating lunch, A+O mostly to self, answers some questions appropriately. HEENT: Normocephalic, atraumatic. PERRL, conjunctivae normal, anicteric sclerae. External ear and nose normal, oropharynx normal. Respiratory: Normal respiratory effort, lungs clear to auscultation, no wheeze, rales, rhonchi. No accessory muscle use. Cardiovascular: Regular rate, rhythm, no murmur, normal peripheral pulses, no BLE edema. Vessels: No JVD. Abdomen/GI: Normal bowel sounds, soft, nontender, no hepatosplenomegaly. Extremities/Musculoskeletal: RLE redness/edema/warmth, left club foot, left heel ulcer covered, moves all extremities. Neurologic: EOMI, no focal deficits, obeys simple commands, CN's II-XI not formally tested but appear grossly intact bilaterally. Skin: No rashes, right shoulder bruise, left shoulder bruise and bruise on left hand noted. Results & Data Results & Data Vital Signs (Past 12 Hours) Vital Signs Temp Pulse Pulse Resp BP Pulse Ox O2 Del Method 01/05/24 11:02 36.3 C L 79 18 120/67 97 Room Air 01/05/24 09:13 Room Air 01/05/24 07:38 36.3 C L 82 16 155/67 H 95 Room Air 01/05/24 07:00 74 01/05/24 02:42 36.4 C L 77 18 134/66 94 Room Air Laboratory Results Short CBC 01/04/24 01/05/24 Range/Units 14:03 05:50 WBC 7.72 5.27 (4.8-10.8) K/ul Hgb 11.6 L 9.6 L (14.0-18.0) g/dl Hct 37.0 L 30.6 L (42.0-52.0) % Plt Count 250 217 (130-400) K/uL BMP 01/04/24 01/05/24 14:03 05:50 Sodium 142 143 Potassium 3.5 3.3 L Chloride 102 105 Carbon Dioxide 32 33 H BUN 19 21 Creatinine 1.37 1.46 H Glucose 104 H 75 Calcium 9.4 8.3 L Liver Function 01/04/24 01/05/24 Range/Units 14:03 05:50 Total Bilirubin 1.1 H 0.6 D (0.2-1.0) mg/dl AST 53 H 38 (13-39) U/L ALT 18 14 (7-52) U/L Alkaline Phosphatase 79 63 (34-104) U/L Albumin 4.0 3.4 (3.4-5.0) gm/dl Urine 01/04/24 Range/Units 15:34 Urine Color Yellow Urine Appearance Clear (Clear) Urine pH 5.5 (4.5-7.5) Ur Specific [place] 1.017 (1.000-1.030) Urine Protein 1+ H (Negative) Urine Glucose (UA) Negative (Negative)
[2024-01-05] MEDS ORDERED: ALBUT/IPRATROP 3MG/0.5MG NEB 3 ML VIAL NEB PRN ×3 (15:56→16:25)
[2024-01-05] MEDS ORDERED: methylPREDNISolone 1000 MG/16 ML IV STA (15:57)
--- NOTE | 2024-01-05 16:07 | Communication Note ---
<Statement entered by Landon Bowling, DO - 01/05/24 17:29> I have seen and examined the patient and have discussed the case with the provider above. I have reviewed the advanced practitioner's documentation, and I agree with, and take responsibility for that plan of care. 22 minutes spent on evaluation patient coordination care. Urgently called to bedside with TRUDY, patient with increased work of breathing and requiring oxygen. Patient reports he has a long smoking history. Reports he is never needed inhalers or nebulizers before. Personally reviewed chest x-ray images, hyperinflated lungs, no pleural effusions, no consolidative infiltrate, no congestion. Patient with decreased breath sounds, prolonged expiratory phase poor airflow and tight faint wheezes throughout. Exacerbation of COPD Nebulizer treatments with DuoNeb, Solu-Medrol IV then continue oral prednisone starting tomorrow Oxygen support Patient reevaluated after nebulizer treatment. Less tachypneic, improved airflow, wheezing improved. Continue with treatment for exacerbation of COPD. Date of Service: January 05, 2024 Was alerted via [employer] by Alisa Maya RN at 15:40 that the patient was short of breath with increased work of breathing. Notable audible expiratory wheezing, but was sating well at 98-99% SpO2 on 2L. Will continue O2 for now. Stat CXR with no overtly acute findings on bedside interpretation. 125mg IV Solu-Medrol ordered in addition to scheduled Duonebs. Will proceed with 5-day course of prednisone 40mg daily starting tomorrow morning. Patient with history of COPD per his son, Patrick. Not currently on any pulmonary medications. Would benefit from inpatient pulmonology consultation if not clinically improving with scheduled nebs and st eroids. Updated his son, Patrick, over the phone. Made him aware of the situation above. Mentions that his father used to smoke 3 packs of cigarettes/day up until he quit in April 2019. Patient has a nebulizer available at home, however "has not used it in many years" according to him. Patrick remembers that his father used to be on a maintenance inhaler, but cannot recall which one.
[2024-01-05] MEDS: ceFAZolin 2000MG 2,000 MG/15 ML SYR IV SCH (16:21)
--- NOTE | 2024-01-05 16:28 | XRay Report ---
XR chest 1V portable HISTORY: Shortness of breath. COMPARISON: None. FINDINGS: No pneumothorax. No pleural effusions. Mild interstitial thickening which is likely chronic . No focal lung consolidations to suggest pneumonia. No evidence for pulmonary edema. The heart is no rmal in size. No acute fractures identified. IMPRESSION: No acute process. ACT 112: Negative or not required by law. Electronically signed by: Yon Mcclellan M.D. 01/05/2024 4:26 PM
[2024-01-05] MEDS ORDERED: ACETAMINOPHEN 325 MG TAB PO SCH (16:30)
[2024-01-05] MEDS: methylPREDNISolone 125 MG in SYRINGE 0 ML IV STA (16:38)
[2024-01-05] MEDS: ACETAMINOPHEN 325 MG TAB PO SCH (16:39)
[2024-01-05] MEDS: ALBUT/IPRATROP 3MG/0.5MG NEB 3 ML VIAL NEB SCH (17:19)
[2024-01-05] MEDS ORDERED: LORazepam 0.5 MG TAB PO PRN (17:25)
[2024-01-06 07:20] LABS: Hematocrit (blood only) 34.6 % (42.0-52.0); Hemoglobin 10.7 g/dl (14.0-18.0); Mean Corpuscular Hemoglobin 26.2 pg (25.0-34.0); Mean Corpuscular Hgb Conc 30.9 g/dL (32.0-36.0); Mean Corpuscular Volume 84.6 fL (80.0-100.0); Mean Platelet Volume 10.2 fL (9.4-12.4); Platelet Count 256 K/uL (130-400); RDW Coefficient of Variation 19.1 % (11.5-14.5); RDW Standard Deviation 57.3 fL (36.4-46.3); Red Blood Count 4.09 M/uL (4.70-6.10); White Blood Count 4.14 K/ul (4.8-10.8)
[2024-01-06 07:43] LABS: BUN Creatinine Ratio 15.9 (10-20); Calcium 8.4 mg/dl (8.6-10.3); Creatinine Clr Calc Pharmacy 33.4 ml/min; Est GFR (African American) 55.6 ml/min; Est GFR (Non-African American) 47.9 ml/min; Magnesium 1.7 mg/dl (1.7-2.4); Phosphorus 3.8 mg/dl (2.5-4.9); Potassium 4.1 mmol/L (3.5-5.1)
[2024-01-06] MEDS: predniSONE 20 MG TAB PO SCH (08:29)
[2024-01-06] MEDS: METOPROLOL SUCC 25MG EXT REL TAB PO SCH (10:01)
--- NOTE | 2024-01-06 13:14 | Hospitalist Progress Note ---
<Statement entered by Landon Bowling, DO - 01/06/24 14:59> I have seen and examined the patient and have discussed the case with the provider above. I have reviewed the advanced practitioner's documentation, and I agree with, and take responsibility for that plan of care. 15 minutes spent on coordination care and evaluated patient. Patient seen and evaluated. Airflow significantly improved, wheezing resolved. Son at bedside. Transition to inhalers Transition to oral antibiotics Therapies Anticipate discharge to rehab tomorrow. Plan of care as outlined below Date of Service January 06, 2024 Assessment & Plan (1) Ambulatory dysfunction: (2) Cellulitis of right lower extremity: (3) COPD exacerbation: Plan Zak Mays is an 78y/o M with PMHx significant for CAD, PAD [history of zdopa-scglb-oryipig bypass & history of angioplasty of previous wuwzl-fewyo-htvjaei bypass in 2021 - both procedures completed in [place]], CKD stage III, COPD, chronic anemia [appears baseline Hgb ~11], lung nodule, history of cardiomyopathy, HTN, chronic left clubfoot pain and RLE DVT who presented to the ED on 01/04/24 for evaluation secondary to recent falls. Patient also noted to have RLE cellulitis and elevated troponin level at time of adm ission. Ambulatory Dysfunction, Recent Falls: PT/OT recommending acute rehabilitation placement. Plan for patient to be discharged to [facility] tomorrow if medically stable as he has a bed there. Acute RLE Cellulitis: In setting of chronic venous stasis changes, known PAD. Vitals have been stable. Currently on day #3 of ABX therapy. Was on IV Ancef, will transition to po Keflex 500mg BID starting tonight. Will need to be discharged on Keflex to complete the total 5-day course. Acute COPD Exacerbation: Was alerted via TT by RN yesterday afternoon that the patient was SOB with increased work of breathing in addition to wheezing. Patient had to be placed on 2L O2 with significant improvement in his SpO2. Stat CXR with no overtly acute findings on bedside interpretation. 125mg IV Solu-Medrol was given in addition to a Duoneb tx. Patient was doing significantly better last night following those interventions, wheezing was greatly improved. Thursday - 01/06/24 Will proceed with 5-day course of prednisone 40mg daily starting today. Not currently on any pulmonary medications at home. Has been on Trelegy in the past. Would benefit from being restarted on Trelegy - son agreeable. Will send in prescription when ready for discharge. Spoke with Raúl Bello RN (nurse coordinator) --> Pulmonology follow-up appointment to be arranged by Shellie. Patient has a nebulizer available at home. Will need the following prescriptions upon discharge: Trelegy, prednisone (to complete course), Duonebs and albuterol inhaler. Elevated Troponin CAD, History of Cardiomyopathy: EKG done in ED with subtle lateral/inferior EKG changes. Patient without chest pain. Initial troponin 29.2, repeat troponins have flattened out. Low concern for ACS at this time. Patient follows with [facility] in [place] [Dr. Efrem Gastelum] per his son. Routine echo revealed small sized anterolateral wall motion abnormality with hypokinesis of the segments, LVEF=45-50% and grade I diastolic dysfunction. Per echo report/summary --> The septal wall motion abnormality correlates with the findings of age-indeterminate septal infarction noted on EKG done in the ED. Subacute RLE DVT: Patient was diagnosed with RLE DVT in 06/2023 and treated with Eliquis x 3 months. Non-occlusive RLE DVT rediagnosed on 12/17/23. Was placed on Xarelto at that time 2/2 lack of insurance coverage. RLE venous doppler US this admission showed nonspecific subcutaneous edema, however no DVT noted. Continue Xarelto. Xarelto dosing per chart review --> 15mg BID for 21 days through 01/07/24, then 20mg daily starting on 01/08/24. 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 Recently completed 10-day course of Keflex from his PCP 2/2 concern of infection. Wound care involved. Peripheral Arterial Disease (PAD) H/O Mnygu-Ynxpa-Mwbvmak Bypass & Angioplasty: Continue statin, ASA and Xarelto. Son reports he follows with vascular surgery in [place]. Spoke with Raúl --> Vascular surgery follow-up appointment to be arranged by Shellie. Made aware by CHARLEEN Han [wound care] that she could not locate R pedal pulse. TEDs removed. RLE arterial doppler pending. Hypertension Episode of Non-Sustained Ventricular Tachycardia: Report from Dr. Palepu that patient had a non-sustained short run of vtach overnight. Patient was not complaining of any symptoms when this occurred. Home Coreg switched to Toprol XL 25mg BID. Chronic Anemia: Hgb ~11 at baseline, Hgb stable at 10.7 today. Anemia panel notes iron deficiency. 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 CKD Stage III: Appears baseline Cr ~1.4, Cr stable at 1.46 today. Avoid nephrotoxic meds when able. Continue to monitor renal fx. 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 Code Status: DNR/DNI - As outlined by previous provider. PCP: Akilah Short MD [[facility] in [place]] Disposition: Patient to be discharged to [facility] tomorrow if medically stable. Patient seen in collaboration with Dr. Bowling. Please see addendum. I spent a total of 65 minutes coordinating, documenting, and providing care for this patient excluding time spent in the performance of separately billed services. This included personally reviewing all current laboratories and imaging studies, medical reconciliation, outpatient chart review and discussion with specialists. This chart was completed in part utilizing Speech Voice Recognition Software. Grammatical errors, random word insertions, pronoun errors, and incomplete sentences are an occasional consequence of this system due to software limitations, ambient noise, and hardware issues. Any formal questions or concerns about the content, text, or information contained within the body of this dictation should be directly addressed to the provider for clarification. Admission and Anticipated Discharge Date Admission Date: January 05, 2024 Subjective Patient seen and examined at bedside in room N283-1. His son, Patrick, was present in the room as well this morning. Patient complaining of left heel pain, but otherwise has no further complaints or concerns. His breathing has significantly improved since yesterday. Took his oxygen off to eat breakfast and was sating well ~96% SpO2. Patient had a run of paroxysmal ventricular tachycardia last night per Dr. Rod - son made aware. Review of Systems Review of Systems: At least ten systems reviewed and negative, except as noted in the subjective section. Physical Exam Physical Exam: General: Frail, vitals as above, NAD, sitting up eating breakfast in bed, A+O mostly to self but very conversive when spoken to. HEENT: Normocephalic, atraumatic. PERRL, conjunctivae normal, anicteric sclerae. External ear and nose normal, oropharynx normal. Respiratory: Normal respiratory effort, lungs clear to auscultation, significant improved from last night. No accessory muscle use. Cardiovascular: Regular rate, rhythm, no murmur, normal peripheral pulses, no BLE edema. Vessels: No JVD. Abdomen/GI: Normal bowel sounds, soft, nontender, no hepatosplenomegaly. Extremities/Musculoskeletal: RLE redness/edema/warmth, left club foot, left heel ulcer covered, moves all extremities. Neurologic: EOMI, no focal deficits, obeys simple commands, CN's II-XI not formally tested but appear grossly intact bilaterally. Skin: No rashes, right shoulder bruise, left shoulder bruise and bruise on left hand noted. Results & Data Results & Data Vital Signs (Past 12 Hours) Vital Signs Temp Pulse Pulse Resp BP Pulse Ox O2 Del Method 01/06/24 11:33 36.4 C L 82 19 146/67 H 97 Room Air 01/06/24 10:49 90 16 96 Room Air 01/06/24 07:45 36.5 C 94 H 19 157/67 H 93 Nasal Cannula 01/06/24 07:41 Nasal Cannula 01/06/24 07:03 89 18 93 Nasal Cannula 01/06/24 06:54 87 01/06/24 02:46 36.2 C L 87 18 148/71 H 100 Nasal Cannula O2 Flow Rate 01/06/24 11:33 01/06/24 10:49 01/06/24 07:45 2 01/06/24 07:41 2 01/06/24 07:03 2 01/06/24 06:54 01/06/24 02:46 2 Laboratory Results Short CBC 01/06/24 Range/Units 06:00 WBC 4.14 L (4.8-10.8) K/ul Hgb 10.7 L (14.0-18.0) g/dl Hct 34.6 L (42.0-52.0) % Plt Count 256 (130-400) K/uL BMP 01/06/24 06:00 Sodium 140 Potassium 4.1 D Chloride 103 Carbon Dioxide 28 BUN 22 Creatinine 1.38 Glucose 123 H Calcium 8.4 L
--- NOTE | 2024-01-06 15:05 | Ultrasound Report ---
LEFT LOWER EXTREMITY ARTERIAL DOPPLER ULTRASOUND CLINICAL HISTORY: Known PAD, L heel ulcer COMPARISON STUDY: No previous studies for comparison. TECHNIQUE: Bilateral ankle to brachial indices were obtained. Grayscale, color and duplex Doppler son ography of the arterial system of the left lower extremity was then performed. FINDINGS: The right ankle-brachial index measured 0.81 when using the dorsalis pedis and 0.921 using posterior tibial artery. The right toe to brachial index was 0.65. Left ankle to brachial index measu red 0.31 when using posterior tibial artery. No flow was identified within the left dorsalis pedis. 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 A femoral to femoral bypass graft is noted. This appears to contain trace flow. Flow within the bypass graft is less than expected. There is monophasic flow within the left common femoral and proximal left superficial femoral artery. There is short segment occlusion of the mid left superficial femoral artery with elevated velocity of 257 cm/s within the distal left superficial femoral artery. There is dampened, monophasic flow within the left popliteal, anterior tibial, dorsalis pedis, peroneal and posterior tibial arteries. No addition al sites of vessel occlusion are identified. IMPRESSION: 1. Markedly diminished left ankle to brachial index of 0.31. Low-normal right ankle-brachial index. E xtensive atherosclerotic plaque within the left lower extremity. 2. Trace flow versus occlusion of the femoral to femoral bypass graft. 3. Monophasic flow throughout the left lower extremity with dampened monophasic flow within the left calf vessels. 4. Short segment occlusion of the mid left superficial femoral artery with distal reconstitution. Angella dence for an additional stenosis within the distal left superficial femoral artery. ACT 112: Negative or not required by law. Electronically signed by: Roque Garces M.D. 01/06/2024 3:03 PM
[2024-01-06] MEDS: cephALEXin 500 MG CAP PO SCH (21:12)
[2024-01-07 06:35] LABS: Hematocrit (blood only) 31.5 % (42.0-52.0); Hemoglobin 9.7 g/dl (14.0-18.0); Mean Corpuscular Hemoglobin 26.4 pg (25.0-34.0); Mean Corpuscular Hgb Conc 30.8 g/dL (32.0-36.0); Mean Corpuscular Volume 85.6 fL (80.0-100.0); Mean Platelet Volume 10.4 fL (9.4-12.4); Nucleated RBC # (auto) 0.02 K/uL (0.00-0.12); Nucleated RBC % (auto) 0.2 %; Platelet Count 245 K/uL (130-400); RDW Coefficient of Variation 19.8 % (11.5-14.5); RDW Standard Deviation 60.2 fL (36.4-46.3); Red Blood Count 3.68 M/uL (4.70-6.10); White Blood Count 10.19 K/ul (4.8-10.8)
[2024-01-07 06:58] LABS: BUN Creatinine Ratio 20.1 (10-20); Calcium 8.1 mg/dl (8.6-10.3); Est GFR (African American) 52.8 ml/min; Est GFR (Non-African American) 45.5 ml/min; Magnesium 1.9 mg/dl (1.7-2.4); Phosphorus 2.5 mg/dl (2.5-4.9); Potassium 3.5 mmol/L (3.5-5.1)
[2024-01-07] MEDS ORDERED: ALBUT/IPRATROP 3MG/0.5MG NEB 3 ML VIAL NEB PRN (08:11)
[2024-01-07 08:48] VITALS: RESP 20
[2024-01-07 11:15] VITALS: BP 153/77; PULSE 81; TEMP 98.1; O2SAT 93
--- NOTE | 2024-01-07 13:23 | Discharge Summary ---
<Statement entered by Landon Bowling, DO - 01/07/24 13:48> I have seen and examined the patient and have discussed the case with the provider above. I have reviewed the advanced practitioner's documentation, and I agree with, and take responsibility for that plan of care. 10 minutes spent on coordination care evaluation patient Patient states he slept well. Lungs significantly improved airflow Discharge plan as outlined below Date of Service January 07, 2024 Admission HPI Per Admitting Provider This is an 78-year-old male who has a significant past medical history of CAD, PAD with history of aortic bypass, hx of femoral bypass and hx of angioplasty to femoral bypass, CKD-3, chronic anemia, COPD, chronic L club foot pain this is a patient with bilateral nephrostomy tube which are, DVT who presents to ED 2/2 falls. Son and daughter in law at bedside. They help provide history. Patient resides in [place], [place]. He was brought here today by his son who lives in the area for further evaluation and concern due to his recent falls. Pt has another son that lives by him and checks on him regularly. He also has someone come to house to help with his meds that helps with compliance. Also of note pt dx with RLE DVT in June and tx with Eliquis x 3 months. He had been off for 3 months and on re eval he was found to have another RLE DVT and placed on xarelto 12/16. Son feels that pt RLE is more red than usual. Pt denies any f/c/s, chest pain, sob at rest, n/v/d, abd pain. He is complaining of L heel pain. Son reports drainage of L heel and that he recently completed a 10 day course of keflex approx 1 week ago due to concern for cellulitis on his left foot. He has had 3 falls the last 2 days. He mostly sleeps in a recliner. His one fall he rolled off the couch while sleeping and the other he fell when he was trying to stand up. He generally feels weak. He walks with a walker. He is unsure if he struck his head, but he presumes that he did. He does not have any traumatic injury other than bruising. He denies BENAVIDEZ of vision changes. He is complaining of L foot pain. He denies any recent illness. He denies f/c/s, chest pain, sob,n/v/d, abd pain. In ED pt remained hemodynamically stable. Head CT, C spine CT, shoulder XR and hip/pelvis xr negative for acute trauma. Hx of smoking. He smoked for 50 years. He quit 5 year ago. Admission Exam Per Admitting Provider GENERAL: Alert and oriented x3. NAD, on RA. Appears ill/frail/weak/old. HEENT: No pallor, no icterus. Pupils equal, round and reactive to light. Oral mucosa moist. NECK: No JVD, no neck masses. HEART: S1 and S2 heard. Regular rate and rhythm. No murmur, no gallop. RESPIRATORY SYSTEM: Normal AP diameter. No accessory muscle use. No wheezing, no crackles. ABDOMEN: Soft, bowel sounds present, nontender, no distention. CENTRAL NERVOUS SYSTEM: No facial droop. Speech is clear. Obeys simple commands. Moves extremities. EXTREMITIES: RLE edema > LLE. Rt leg and foot warmth/edema noted. Left club foot noted. Rt shoulder bruise, Left elbow bruise and left hand bruise noted. No bruise/swelling in head/neck area. Principal Diagnosis Ambulatory Dysfunction Cellulitis RLE COPD Exacerbation Discharge Exam General: awake, alert, no apparent distress, elderly white male Head: Normocephalic, atraumatic ENT: PERRL, EOMI, no pharyngeal exudate, mucous membranes moist,+ poor denition Chest: Clear to auscultation, on room air, no adventitious breath sounds Cardiac: Regular rate and rhythm, no murmur, no JVD, normal peripheral pulses, good capillary refill Abdominal: NABS x 4 quadrants, soft, nondistended, nontender to palpation, no rebound or guarding Extremities: Normal inspection, RLE peripheral edema, trace erythema, 2+ pitting up to the knee. L heel wound, no edema or erythema, calfs nontender to palpation Psych: Normal mood and affect Neuro: AAO x 3, strength intact bilaterally and rated 5/5, no motor deficits, speech is clear, no peripheral sensory deficits Discharge Data Allergies Allergy/AdvReac Type Severity Reaction Status Date / Time No Known Allergies Allergy Unverified 01/04/24 16:27 Consultations 01/04/24 17:11 ED Decision to Admit Stat Ordered Studies 01/04/24 14:17 CT cervical spine wo con Stat CT head/brain wo con Stat 01/04/24 17:48 US venous doppler LE RT Stat 01/06/24 10:20 US arterial duplex LE LT Routine Hospital Course (1) Ambulatory dysfunction: (2) Cellulitis of right lower extremity: (3) COPD exacerbation: Plan Zak Mays is an 78y/o M with PMHx significant for CAD, PAD [history of qdqfy-itflu-dgqvsmu bypass & history of angioplasty of previous ffcvb-itqow-cfmzyiw bypass in 2021 - both procedures completed in [place]], CKD stage III, COPD, chronic anemia [appears baseline Hgb ~11], lung nodule, history of cardiomyopathy, HTN, chronic left clubfoot pain and RLE DVT who presented to the ED on 01/04/24 for evaluation secondary to recent falls. Patient also noted to have RLE cellulitis and elevated troponin level at time of admission. Ambulatory Dysfunction, Recent Falls: PT/OT recommending acute rehabilitation placement. discharged to [facility] today Acute RLE Cellulitis: In setting of chronic venous stasis changes, known PAD. Vitals have been stable. Currently on day #3 of ABX therapy. Was on IV Ancef, will transition to po Keflex 500mg BID (01/05). Cont Keflex tonight and 01/07 to complete the total 5-day course. Acute COPD Exacerbation: Presented with SOB/wheezing. Now improved. No O2 needs. Patient had to be placed on 2L O2 with significant improvement in his SpO2. Stat CXR with no overtly acute findings 125mg IV Solu-Medrol transition d to Prednisone on 01/05, Home Duoneb tx refill sent to home pharmacy as well as initiation of Trelegy daily inhaler, albuterol rescue inhaler prn Pulmonology follow-up appointment to be arranged by [facility]. Elevated Troponin CAD, History of Cardiomyopathy: EKG done in ED with subtle lateral/inferior EKG changes. Patient without chest pain. Initial troponin 29.2, repeat troponins flat. Low concern for ACS Patient follows with [facility] in [place] [Dr. Efrem Gastelum] per his son. Routine echo revealed small sized anterolateral wall motion abnormality with hypokinesis of the segments, LVEF=45-50% and grade I diastolic dysfunction. Per echo report/summary --> The septal wall motion abnormality correlates with the findings of age-indeterminate septal infarction noted on EKG done in the ED. Subacute RLE DVT: Patient was diagnosed with RLE DVT in 06/2023 and treated with Eliquis x 3 months. Non-occlusive RLE DVT rediagnosed on 12/17/23. Was placed on Xarelto at that time 2/2 lack of insurance coverage. RLE venous doppler US this admission showed nonspecific subcutaneous edema, however no DVT noted. Continue Xarelto. Xarelto dosing per chart review --> 15mg BID for 21 days through 01/07/24, then 20mg daily starting on 01/08/24. Given coupon at time of discharge to use if possible. Son is applying for Rx coverage as currently patient has NO prescription coverage. Left Heel Ulcer: Patient with known left heel ulcer [employer]. 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 Recently completed 10-day course of Keflex from his PCP 2/2 concern of infection. Wound care involved. Peripheral Arterial Disease (PAD) H/O Ldktg-Wkmbc-Jotyery Bypass & Angioplasty: Continue statin, ASA and Xarelto. Son reports he follows with vascular surgery in [place]. Spoke with Raúl --> Vascular surgery follow-up appointment to be arranged by Shellie. RLE arterial duplex reviewed --showing significant PAD: recommend vascular follow up in [place] within 2-4 weeks. No emergency at this time. TECHNIQUE: Bilateral ankle to brachial indices were obtained. Grayscale, color and duplex Doppler sonography of the arterial system of the left lower extremity was then performed. FINDINGS: The right ankle-brachial index measured 0.81 when using the dorsalis pedis and 0.921 using posterior tibial artery. The right toe to brachial index was 0.65. Left ankle to brachial index measured 0.31 when using posterior tibial artery. No flow was identified within the left dorsalis pedis. 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 A femoral to femoral bypass graft is noted. This appears to contain trace flow. Flow within the bypass graft is less than expected. There is monophasic flow within the left common femoral and proximal left superficial femoral artery. There is short segment occlusion of the mid left superficial femoral artery with elevated velocity of 257 cm/s within the distal left superficial femoral artery. There is dampened, monophasic flow within the left popliteal, anterior tibial, dorsalis pedis, peroneal and posterior tibial arteries. No additional sites of vessel occlusion are identified. IMPRESSION: 1. Markedly diminished left ankle to brachial index of 0.31. Low-normal right ankle-brachial index. Extensive atherosclerotic plaque within the left lower extremity. 2. Trace flow versus occlusion of the femoral to femoral bypass graft. 3. Monophasic flow throughout the left lower extremity with dampened monophasic flow within the left calf vessels. 4. Short segment occlusion of the mid left superficial femoral artery with distal reconstitution. Evidence for an additional stenosis within the distal left superficial femoral artery. Hypertension Episode of Non-Sustained Ventricular Tachycardia: Report from Dr. Rod that patient had a non-sustained short run of vtach overnight as well as on 01/06 with 6 beat run. Pt is asymptomatic during these boughts. Home Coreg switched to Toprol XL 25mg BID. Chronic Anemia: Hgb ~11 at baseline, Hgb stable at 10.7 today. Anemia panel notes iron deficiency. Patient on iron supplementation [employer] - will continue. CKD Stage III: Appears baseline Cr ~1.4, Cr stable at 1.46 today. Avoid nephrotoxic meds when able. Continue to monitor renal fx. DVT Prophylaxis: On Xarelto [employer] - continue as per dosing mentioned above. Code Status: DNR/DNI - As outlined by previous provider. PCP: Akilah Short MD [[facility] in [place]] Disposition: discharge to [facility] today Patient seen in collaboration with Dr. Bowling. Please see addendum. Total Time Total Time Spent Total Time Spent (In Minutes): 45 Discharge Plan Discharge Items Patient Disposition: Transfer Inpatient Rehab Fac Reason For Visit: FALL, AMBULATORY DYSFUNCTION Discharge Diagnosis: Ambulatory dysfunction Cellulitis Right lower extremity COPD exacerbation Condition on Discharge: Good Activity: Per Instructions section Lifting: Gradually increase as tolerated and No more than 10 pounds Bathing: No limitations Exercise/Sports: Gradually increase as tolerated Weightbearing: Full weightbearing Non-emergency contact: Primary Care Provider Call non-emergency contact if: you have any medication questions, your symptoms worsen, your pain is not controlled and your temperature is above 101 Follow-up/Referrals: Akilah Short M.D. [Primary Care Provider] - Diet: Heart Healthy and Low Sodium (2gm) Addtl Attending Provider Instructions: You were admitted to [facility] due to ambulatory dysfunction and diagnosed with the same, as well as a Right lower extremity cellulitis. During your stay here you were treated with supportive care, medications including antibiotics and your symptoms improved. Medications: Continue taking you medications as prescribed New Prescriptions: Keflex 500 mg twice daily x 3 more doses ( next dose 01/06 in evening, to finish 5 day course) Albuterol rescue inhaler, 2 puffs every 4 hours as needed Trelegy inhaler 1 puff daily Prednisone 40 mg x 2 days ( finishes the 5 day total course.) Xarelto 20 mg daily ( blood thinner for right lower extremity DVT/blood clot) Imaging: Arterial Duplex Bilateral lower extremity showed extensive atherosclerotic plaque within the left lower extremity. Appointments: Follow up with PCP within 1 week, an appointment has been requested for you. [facility] set up an appointment with Vascular surgery regarding the uckxg-bdoxw-vaqaolo bypass and angioplasty within the next 2-4 weeks with [facility]. Pulmonology for PFTs and evaluation Pending Studies at Discharge: No Studies:: LEFT LOWER EXTREMITY ARTERIAL DOPPLER ULTRASOUND CLINICAL HISTORY: Known PAD, L heel ulcer COMPARISON STUDY: No previous studies for comparison. TECHNIQUE: Bilateral ankle to brachial indices were obtained. Grayscale, color and duplex Doppler sonography of the arterial system of the left lower extremity was then performed. FINDINGS: The right ankle-brachial index measured 0.81 when using the dorsalis pedis and 0.921 using posterior tibial artery. The right toe to brachial index was 0.65. Left ankle to brachial index measured 0.31 when using posterior tibial artery. No flow was identified within the left dorsalis pedis. 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 A femoral to femoral bypass graft is noted. This appears to contain trace flow. Flow within the bypass graft is less than expected. There is monophasic flow within the left common femoral and proximal left superficial femoral artery. There is short segment occlusion of the mid left superficial femoral artery with elevated velocity of 257 cm/s within the distal left superficial femoral artery. There is dampened, monophasic flow within the left popliteal, anterior tibial, dorsalis pedis, peroneal and posterior tibial arteries. No additional sites of vessel occlusion are identified. IMPRESSION: 1. Markedly diminished left ankle to brachial index of 0.31. Low-normal right ankle-brachial index. Extensive atherosclerotic plaque within the left lower extremity. 2. Trace flow versus occlusion of the femoral to femoral bypass graft. 3. Monophasic flow throughout the left lower extremity with dampened monophasic flow within the left calf vessels. 4. Short segment occlusion of the mid left superficial femoral artery with distal reconstitution. Evidence for an additional stenosis within the distal left superficial femoral artery. ACT 112: Negative or not required by law. Electronically signed by: Roque Garces M.D. 01/06/2024 3:03 PM Stand-Alone Forms: My [facility] Skilled Items Patient informed of condition?: Yes DNR: Yes Discharge Level of Care: Acute rehab Communicable Disease: No Discharge Prognosis: Improving Lines: None Urinary Catheter: No Medications and DC Order Prescriptions: New cephalexin 500 mg Capsule 500 mg PO QID 2 Days Qty: 8 0RF metoprolol succinate 25 mg Tablet Extended Release 24 Hr 25 mg PO BID 30 Days Qty: 60 0RF Xarelto 20 mg Tablet 20 mg PO DAILY 30 Days Qty: 30 2RF melatonin 3 mg Tablet 6 mg PO HS PRN (Reason: sleep) 30 Days Qty: 30 0RF cholecalciferol (vitamin D3) 125 mcg (5,000 unit) Tablet 125 mcg PO QAM 30 Days Qty: 30 0RF Trelegy Ellipta 100-62.5-25 mcg blister with device 1 inh inhalation DAILY Qty: 60 1RF prednisone 20 mg tablet 40 mg PO DAILY 2 Days Qty: 4 0RF Continued atorvastatin 40 mg tablet 40 mg PO DAILY ferrous sulfate [FeroSul] 325 mg (65 mg iron) tablet 325 mg PO DAILY furosemide 20 mg tablet 20 mg PO DAILY aspirin 81 mg Tablet,Delayed Release (Dr/Ec) 81 mg PO DAILY Discontinued carvedilol 3.125 mg tablet 3.125 mg PO BID Xarelto 15 mg Tablet 15 mg PO BID Rx Instructions: BID for 21 starts, started 12/16 then 20mg daily. Discharge Orders: Discharge Order (Routine); Ordered 01/07/24 Ordered By: Reema Miller Admission Data Admit Date/Time: 01/05/24 13:45 Attending Provider: Landon Bowling Admit Provider: Priyanka Dahl Primary Care Provider: Akilah Short Other Providers: [facility]; Priyanka Dahl
[2024-01-08] MEDS ORDERED: RIVAROXABAN 20 MG TAB PO SCH (16:30)
== END 2024-01-07 14:19 | DRG 603 ==
LOC: 2N 13:06 → ED 13:06 → SUATTDRO 17:18 → 2N 18:42